=== PATIENT | male | born 1990 | race Caucasian/White ===

== ENCOUNTER 2017-02-25 04:30 | Emergency (ER) | payer OTHER, SELFPAY ==
[~2017-02-25] VITALS: Ht 180.3 cm; Wt 70.0 kg
[2017-02-25 04:32] VITALS: BP 115/87
[2017-02-25] MEDS ORDERED: ALEV220C2 PO (04:38)
[2017-02-25] MEDS ORDERED: CETACAINE SPRAY 20GM (FLOOR STOCK) TOP ONE (05:00)
[2017-02-25] MEDS ORDERED: BUPIVACAINE/EPIN 0.5% 30 ML VIAL XX ONE (05:00)
[2017-02-25] MEDS ORDERED: CLIN150C14 PO (05:04)
== END 2017-02-25 05:54 | disposition home or self-care (01) ==
LOC: M ED 04:30
DX: K08.89 Other specified disorders of teeth and supporting structures (principal); F17.210 Nicotine dependence, cigarettes, uncomplicated; Z88.0 Allergy status to penicillin